=== PATIENT | male | born 1970 | race Caucasian/White ===

== ENCOUNTER 2021-10-22 09:41 | Inpatient (IN) ==
[2021-10-22] MEDS ORDERED: Ondansetron ODT 4 MG TAB.RAPDIS SL PRN (16:15)
[2021-10-22] MEDS ORDERED: Mag Hydrox/Al Hydrox/Simeth 30 ML UDC PO PRN (16:15)
[2021-10-22] MEDS ORDERED: Naloxone 0.4 MG/ML INJ IVP PRN (16:15)
[2021-10-22] MEDS ORDERED: Melatonin 3 MG TABLET PO PRN (16:15)
[2021-10-22] MEDS ORDERED: Perflutren Lipid Microsphere 1.3 ML in 0.9 % Sodium Chloride 8.7 ML IVP PRN (16:28)
[2021-10-22] MEDS ORDERED: Furosemide 40 MG/4 ML VIAL IVP ONE (16:42)
[2021-10-22 17:01] LABS: Hematocrit 24.1 % (37.5-50.1); Hemoglobin 7.7 g/dL (12.9-16.9)
[2021-10-22] MEDS: mycophenolate mofetiL 250 MG CAPSULE PO SCH (17:17)
[2021-10-22] MEDS ORDERED: Acetaminophen 325 MG TABLET PO ONE (20:23)
[2021-10-22] MEDS: NIFEdipine XL (24 HR) 30 MG TAB.ER.24 PO SCH (20:34)
[2021-10-23 03:08] LABS: Basophils % 0.4 %; Eosinophils # 0.2 K/mcL (0.0-0.6); Eosinophils % 3.2 %; Hematocrit 20.8 % (37.5-50.1); Hemoglobin 6.4 g/dL (12.9-16.9); Immature Granulocytes % 0.3 % (0-4); Lymphocytes # 1.1 K/mcL (0.6-4.6); Lymphocytes % 15.3 %; Mean Corpuscular HGB Conc 30.8 g/dL (31.6-35.5); Mean Corpuscular Hemoglobin 26.9 pg (28.0-33.3); Mean Corpuscular Volume 87.4 fL (83.0-100.0); Mean Platelet Volume 10.2 fL (9.4-12.4); Monocytes # 0.6 K/mcL (0.0-1.3); Monocytes % 8.1 %; Neutrophils # 5.2 K/mcL (1.6-8.9); Platelet Count 180 K/mcL (140-400); Red Blood Count 2.38 M/mcL (4.19-5.50); Red Cell Distribution Width 14.6 % (11.5-14.5); Segmented Neutrophils % 72.7 %; White Blood Count 7.2 K/mcL (4.3-11.1)
[2021-10-23 03:27] LABS: Albumin 3.2 g/dL (3.5-5.7); Albumin/Globulin Ratio 1.7 (1.1-2.2); Bilirubin,Total 0.4 mg/dL (0.3-1.0); Globulin 1.9 g/dL (2.4-3.5); Potassium 4.4 mEq/L (3.5-5.1); Total Protein 5.1 g/dL (6.4-8.9)
[2021-10-23] MEDS ORDERED: Dextrose Gel 15 GM/37.5 ML TUBE PO PRN ×2 (05:42)
[2021-10-23] MEDS ORDERED: D5% in Water 1,000 ML IVC PRN (05:42)
[2021-10-23] MEDS ORDERED: *HR* Dextrose 50 % in Water (Syg) 50 ML SYRINGE IVP PRN (05:42)
[2021-10-23] MEDS: mycophenolate mofetiL 250 MG CAPSULE PO SCH ×2 (07:59→20:04)
[2021-10-23] MEDS: NIFEdipine XL (24 HR) 30 MG TAB.ER.24 PO SCH ×2 (07:59→20:05)
[2021-10-23] MEDS ORDERED: predniSONE 5 MG TABLET PO SCH (09:00)
[2021-10-23] MEDS ORDERED: Iron Sucrose Complex 400 MG in 0.9 % Sodium Chloride 250 ML IVPB ONE (09:17)
[2021-10-23] MEDS ORDERED: 0.9 % Sodium Chloride 250 ML ONE (13:37)
[2021-10-23] MEDS: hydrALAZINE 10 MG TABLET PO SCH ×2 (14:32→20:03)
[2021-10-23] MEDS: Insulin Pump Cart,Cont Inf,Rf [Insulin Pump] 1 EACH SUBQ SCH (15:28)
[2021-10-23] MEDS: Furosemide 40 MG TABLET PO SCH (17:42)
[2021-10-23] MEDS ORDERED: (Tacrolimus [Prograf] 1 MG Capsule) PO SCH (18:00)
[2021-10-23] MEDS ORDERED: mycophenolate mofetiL 250 MG CAPSULE PO SCH (21:00)
[2021-10-24 01:02] LABS: Basophils % 0.4 %; Eosinophils # 0.2 K/mcL (0.0-0.6); Hemoglobin 7.9 g/dL (12.9-16.9); Immature Granulocytes % 0.4 % (0-4); Lymphocytes # 0.9 K/mcL (0.6-4.6); Lymphocytes % 7.7 %; Mean Corpuscular HGB Conc 31.6 g/dL (31.6-35.5); Mean Corpuscular Hemoglobin 27.4 pg (28.0-33.3); Mean Corpuscular Volume 86.8 fL (83.0-100.0); Monocytes # 0.8 K/mcL (0.0-1.3); Monocytes % 7.4 %; Neutrophils # 9.2 K/mcL (1.6-8.9); Platelet Count 183 K/mcL (140-400); Red Blood Count 2.88 M/mcL (4.19-5.50); Red Cell Distribution Width 14.2 % (11.5-14.5); Segmented Neutrophils % 82.1 %
[2021-10-24 01:03] LABS: White Blood Count 11.2 K/mcL (4.3-11.1)
[2021-10-24 01:22] LABS: Calcium 8.2 mg/dL (8.6-10.3); Magnesium 1.8 mg/dL (1.6-2.6); Potassium 4.7 mEq/L (3.5-5.1)
[2021-10-24 01:47] LABS: Vitamin B12 283 pg/mL (250-1100)
[2021-10-24] MEDS: mycophenolate mofetiL 250 MG CAPSULE PO SCH ×2 (09:38→20:21)
[2021-10-24] MEDS: NIFEdipine XL (24 HR) 30 MG TAB.ER.24 PO SCH ×2 (09:38→20:20)
[2021-10-24] MEDS: predniSONE 5 MG TABLET PO SCH (09:38)
[2021-10-24] MEDS: hydrALAZINE 10 MG TABLET PO SCH ×3 (09:39→20:20)
[2021-10-24] MEDS: Magnesium Oxide 400 MG TABLET PO SCH (09:39)
[2021-10-24] MEDS: (Tacrolimus [Prograf] 1 MG Capsule) PO SCH (09:39)
[2021-10-24] MEDS: Furosemide 40 MG TABLET PO SCH ×2 (09:42→16:21)
[2021-10-24 11:38] LABS: Vitamin D 25 Hydroxy 21 ng/mL (30-80)
[2021-10-24] MEDS: Insulin Pump Cart,Cont Inf,Rf [Insulin Pump] 1 EACH SUBQ SCH (14:54)
[2021-10-24] MEDS ORDERED: TACROLIMUS 1MG CAPSULE PO SCH (21:00)
[2021-10-25] MEDS ORDERED: Insulin LISPRO 300 UNITS/3 ML VIAL SUBQ SCH ×2 (01:15→07:30)
[2021-10-25 05:45] LABS: Basophils # 0.1 K/mcL (0.0-0.2); Basophils % 0.7 %; Eosinophils # 0.2 K/mcL (0.0-0.6); Eosinophils % 3.1 %; Hematocrit 24.6 % (37.5-50.1); Hemoglobin 7.7 g/dL (12.9-16.9); Immature Granulocytes % 0.6 % (0-4); Lymphocytes # 1.1 K/mcL (0.6-4.6); Lymphocytes % 15.3 %; Mean Corpuscular HGB Conc 31.3 g/dL (31.6-35.5); Mean Corpuscular Hemoglobin 27.3 pg (28.0-33.3); Mean Corpuscular Volume 87.2 fL (83.0-100.0); Monocytes # 0.7 K/mcL (0.0-1.3); Monocytes % 9.6 %; Neutrophils # 5.1 K/mcL (1.6-8.9); Platelet Count 181 K/mcL (140-400); Red Blood Count 2.82 M/mcL (4.19-5.50); Red Cell Distribution Width 14.3 % (11.5-14.5); Segmented Neutrophils % 70.7 %; White Blood Count 7.2 K/mcL (4.3-11.1)
[2021-10-25 05:56] LABS: Calcium 8.4 mg/dL (8.6-10.3); Magnesium 1.7 mg/dL (1.6-2.6); Potassium 4.8 mEq/L (3.5-5.1)
[2021-10-25] MEDS: NIFEdipine XL (24 HR) 30 MG TAB.ER.24 PO SCH (08:15)
[2021-10-25] MEDS: hydrALAZINE 10 MG TABLET PO SCH (08:15)
[2021-10-25] MEDS: predniSONE 5 MG TABLET PO SCH (08:15)
[2021-10-25] MEDS: mycophenolate mofetiL 250 MG CAPSULE PO SCH (08:15)
[2021-10-25] MEDS: Magnesium Oxide 400 MG TABLET PO SCH (08:16)
[2021-10-25] MEDS: (Tacrolimus [Prograf] 1 MG Capsule) PO SCH (08:16)
[2021-10-25] MEDS: Furosemide 40 MG TABLET PO SCH (08:16)
== END 2021-10-25 12:15 | disposition home or self-care (01) | DRG 194 ==
LOC: 2ANU → SUATTDRO 15:08
PROVIDERS: ADMIT Internal Medicine; ATTEND Family Medicine

== ENCOUNTER 2021-11-04 09:35 | Inpatient (IN) ==
[2021-11-04] MEDS ORDERED: Melatonin 3 MG TABLET PO PRN (12:35)
[2021-11-04] MEDS ORDERED: Ondansetron 4 MG/2 ML VIAL IVP PRN (12:35)
[2021-11-04] MEDS ORDERED: Naloxone 0.4 MG/ML INJ IVP PRN (12:35)
[2021-11-04] MEDS ORDERED: Acetaminophen 325 MG TABLET PO PRN (12:35)
[2021-11-04] MEDS ORDERED: *HR* Dextrose 50 % in Water (Syg) 50 ML SYRINGE IVP PRN (13:20)
[2021-11-04] MEDS ORDERED: D5% in Water 1,000 ML IVC PRN (13:20)
[2021-11-04] MEDS ORDERED: Dextrose Gel 15 GM/37.5 ML TUBE PO PRN ×2 (13:20)
[2021-11-04] MEDS ORDERED: hydrALAZINE 25 MG TABLET PO PRN (15:48)
[2021-11-04] MEDS: Furosemide 40 MG TABLET PO SCH (16:52)
[2021-11-04] MEDS: Insulin LISPRO 300 UNITS/3 ML VIAL SUBQ SCH ×2 (16:52→21:58)
[2021-11-04] MEDS: NIFEdipine XL (24 HR) 30 MG TAB.ER.24 PO SCH (16:52)
[2021-11-04] MEDS: (Tacrolimus [Prograf] 1 MG Capsule) PO SCH (17:16)
[2021-11-04] MEDS ORDERED: TACROLIMUS 0.5 MG PO SCH (18:00)
[2021-11-04] MEDS: mycophenolate mofetiL 250 MG CAPSULE PO SCH (21:57)
[2021-11-04] MEDS: Insulin DETEMIR 100 UNIT/ML X5UNITS SUBQ SCH (21:58)
[2021-11-05 01:46] LABS: Basophils % 0.4 %; Eosinophils # 0.2 K/mcL (0.0-0.6); Eosinophils % 2.1 %; Hematocrit 19.7 % (37.5-50.1); Hemoglobin 6.1 g/dL (12.9-16.9); Immature Granulocytes % 0.4 % (0-4); Lymphocytes # 0.9 K/mcL (0.6-4.6); Lymphocytes % 9.3 %; Mean Corpuscular Hemoglobin 26.9 pg (28.0-33.3); Mean Corpuscular Volume 86.8 fL (83.0-100.0); Mean Platelet Volume 10.4 fL (9.4-12.4); Monocytes # 0.6 K/mcL (0.0-1.3); Monocytes % 6.5 %; Neutrophils # 7.7 K/mcL (1.6-8.9); Platelet Count 148 K/mcL (140-400); Red Blood Count 2.27 M/mcL (4.19-5.50); Red Cell Distribution Width 14.1 % (11.5-14.5); Segmented Neutrophils % 81.3 %; White Blood Count 9.5 K/mcL (4.3-11.1)
[2021-11-05 02:11] LABS: Calcium 8.2 mg/dL (8.6-10.3); Magnesium 1.5 mg/dL (1.6-2.6); Phosphorous 5.9 mg/dL (2.7-4.5); Potassium 5.1 mEq/L (3.5-5.1)
[2021-11-05 03:22] LABS: Estimated Average Glucose 160 mg/dl; Hemoglobin A1C 7.2 %
[2021-11-05] MEDS ORDERED: TACROLIMUS 0.5 MG PO SCH (09:00)
[2021-11-05] MEDS ORDERED: 0.9 % Sodium Chloride 250 ML IVC PRN (09:05)
[2021-11-05] MEDS ORDERED: 0.9 % Sodium Chloride 2,000 ML PRIME SCH (09:15)
[2021-11-05 09:29] LABS: Hematocrit 20.6 % (37.5-50.1); Hemoglobin 6.6 g/dL (12.9-16.9)
[2021-11-05] MEDS ORDERED: Ethyl Chloride Spray Bottle (104 SPRAY/BOTTLE) TP PRN (09:29)
[2021-11-05] MEDS: Furosemide 40 MG TABLET PO SCH ×2 (09:33→17:21)
[2021-11-05] MEDS: (Tacrolimus [Prograf] 1 MG Capsule) PO SCH ×2 (09:33→17:22)
[2021-11-05] MEDS: mycophenolate mofetiL 250 MG CAPSULE PO SCH ×2 (09:33→22:04)
[2021-11-05] MEDS: NIFEdipine XL (24 HR) 30 MG TAB.ER.24 PO SCH (09:33)
[2021-11-05] MEDS: predniSONE 5 MG TABLET PO SCH (09:33)
[2021-11-05] MEDS: Magnesium Oxide 400 MG TABLET PO SCH (09:33)
[2021-11-05] MEDS: Insulin LISPRO 300 UNITS/3 ML VIAL SUBQ SCH ×4 (09:34→22:04)
[2021-11-05 12:22] LABS: Hepatitis B Surface Antibody < 3.10 mIU/mL
[2021-11-05 12:31] LABS: Hepatitis B Surface Antigen Nonreactive (Nonreactive)
[2021-11-05] MEDS: hydrALAZINE 25 MG TABLET PO SCH ×2 (17:21→23:22)
[2021-11-05] MEDS: Insulin DETEMIR 100 UNIT/ML X5UNITS SUBQ SCH (22:04)
[2021-11-06 06:12] LABS: Basophils % 0.4 %; Eosinophils # 0.3 K/mcL (0.0-0.6); Eosinophils % 4.2 %; Hematocrit 21.8 % (37.5-50.1); Immature Granulocytes % 0.3 % (0-4); Lymphocytes % 15.2 %; Mean Corpuscular HGB Conc 32.1 g/dL (31.6-35.5); Mean Corpuscular Hemoglobin 27.8 pg (28.0-33.3); Mean Corpuscular Volume 86.5 fL (83.0-100.0); Mean Platelet Volume 10.4 fL (9.4-12.4); Monocytes # 0.6 K/mcL (0.0-1.3); Monocytes % 8.4 %; Neutrophils # 4.8 K/mcL (1.6-8.9); Platelet Count 145 K/mcL (140-400); Red Blood Count 2.52 M/mcL (4.19-5.50); Red Cell Distribution Width 14.1 % (11.5-14.5); Segmented Neutrophils % 71.5 %; White Blood Count 6.7 K/mcL (4.3-11.1)
[2021-11-06 06:22] LABS: Calcium 8.5 mg/dL (8.6-10.3); Potassium 4.5 mEq/L (3.5-5.1)
[2021-11-06 06:24] LABS: Phosphorous 5.7 mg/dL (2.7-4.5)
[2021-11-06 06:25] LABS: INR 1.2; Prothrombin Time 13.6 Seconds (9.4-12.1)
[2021-11-06] MEDS ORDERED: 0.9 % Sodium Chloride 250 ML IVC PRN (07:17)
[2021-11-06] MEDS: Magnesium Oxide 400 MG TABLET PO SCH (07:44)
[2021-11-06] MEDS: mycophenolate mofetiL 250 MG CAPSULE PO SCH ×2 (07:44→20:36)
[2021-11-06] MEDS: predniSONE 5 MG TABLET PO SCH (07:44)
[2021-11-06] MEDS: hydrALAZINE 25 MG TABLET PO SCH ×3 (07:44→23:00)
[2021-11-06] MEDS: NIFEdipine XL (24 HR) 30 MG TAB.ER.24 PO SCH (07:44)
[2021-11-06] MEDS: Furosemide 40 MG TABLET PO SCH ×2 (07:44→16:01)
[2021-11-06] MEDS: (Tacrolimus [Prograf] 1 MG Capsule) PO SCH ×3 (07:44→17:05)
[2021-11-06] MEDS: Insulin LISPRO 300 UNITS/3 ML VIAL SUBQ SCH ×4 (07:45→20:35)
[2021-11-06] MEDS ORDERED: 0.9 % Sodium Chloride 500 ML ONE (10:11)
[2021-11-06] MEDS ORDERED: Iopamidol - 300 50 ML VIAL IVP ONE (10:18)
[2021-11-06] MEDS: Insulin DETEMIR 100 UNIT/ML X5UNITS SUBQ SCH (20:34)
[2021-11-07 07:21] LABS: Calcium 8.4 mg/dL (8.6-10.3); Potassium 4.6 mEq/L (3.5-5.1)
[2021-11-07] MEDS: Magnesium Oxide 400 MG TABLET PO SCH (07:40)
[2021-11-07] MEDS: hydrALAZINE 25 MG TABLET PO SCH ×3 (07:40→23:58)
[2021-11-07] MEDS: (Tacrolimus [Prograf] 1 MG Capsule) PO SCH ×2 (07:41→17:26)
[2021-11-07] MEDS: mycophenolate mofetiL 250 MG CAPSULE PO SCH ×2 (07:41→21:28)
[2021-11-07] MEDS: Furosemide 40 MG TABLET PO SCH ×2 (07:41→17:25)
[2021-11-07] MEDS: Insulin LISPRO 300 UNITS/3 ML VIAL SUBQ SCH ×4 (07:41→21:27)
[2021-11-07] MEDS: NIFEdipine XL (24 HR) 30 MG TAB.ER.24 PO SCH (07:41)
[2021-11-07] MEDS: predniSONE 5 MG TABLET PO SCH (07:41)
[2021-11-07 08:02] LABS: Hematocrit 23.4 % (37.5-50.1); Hemoglobin 7.4 g/dL (12.9-16.9); Mean Corpuscular HGB Conc 31.6 g/dL (31.6-35.5); Mean Corpuscular Hemoglobin 27.6 pg (28.0-33.3); Mean Corpuscular Volume 87.3 fL (83.0-100.0); Mean Platelet Volume 10.5 fL (9.4-12.4); Platelet Count 174 K/mcL (140-400); Red Blood Count 2.68 M/mcL (4.19-5.50); Red Cell Distribution Width 14.3 % (11.5-14.5); White Blood Count 5.3 K/mcL (4.3-11.1)
[2021-11-07] MEDS ORDERED: SODIUM CHLORIDE/NAHCO3/KCL/PEG 4,000 ML SOLN.RECON PO ONE (17:00)
[2021-11-07] MEDS: Insulin DETEMIR 100 UNIT/ML X5UNITS SUBQ SCH (21:27)
[2021-11-08 02:57] LABS: Basophils % 0.6 %; Eosinophils # 0.3 K/mcL (0.0-0.6); Eosinophils % 4.1 %; Hematocrit 23.6 % (37.5-50.1); Hemoglobin 7.3 g/dL (12.9-16.9); Immature Granulocytes % 0.7 % (0-4); Lymphocytes # 1.2 K/mcL (0.6-4.6); Lymphocytes % 17.7 %; Mean Corpuscular HGB Conc 30.9 g/dL (31.6-35.5); Mean Corpuscular Hemoglobin 27.1 pg (28.0-33.3); Mean Corpuscular Volume 87.7 fL (83.0-100.0); Mean Platelet Volume 10.4 fL (9.4-12.4); Monocytes # 0.7 K/mcL (0.0-1.3); Monocytes % 9.4 %; Neutrophils # 4.7 K/mcL (1.6-8.9); Platelet Count 187 K/mcL (140-400); Red Blood Count 2.69 M/mcL (4.19-5.50); Red Cell Distribution Width 14.1 % (11.5-14.5); Segmented Neutrophils % 67.5 %; White Blood Count 6.9 K/mcL (4.3-11.1)
[2021-11-08 03:16] LABS: Albumin 2.7 g/dL (3.5-5.7); Albumin/Globulin Ratio 1.4 (1.1-2.2); Bilirubin,Total 0.3 mg/dL (0.3-1.0); Calcium 8.2 mg/dL (8.6-10.3); Calcium 8.3 mg/dL (8.6-10.3); Globulin 1.9 g/dL (2.4-3.5); Potassium 4.6 mEq/L (3.5-5.1); Total Protein 4.6 g/dL (6.4-8.9)
[2021-11-08] MEDS ORDERED: 0.9 % Sodium Chloride 250 ML IVC PRN (07:09)
[2021-11-08] MEDS: mycophenolate mofetiL 250 MG CAPSULE PO SCH ×2 (08:28→21:46)
[2021-11-08] MEDS: NIFEdipine XL (24 HR) 30 MG TAB.ER.24 PO SCH (08:28)
[2021-11-08] MEDS: predniSONE 5 MG TABLET PO SCH (08:28)
[2021-11-08] MEDS: Furosemide 40 MG TABLET PO SCH ×2 (08:29→16:59)
[2021-11-08] MEDS: Insulin LISPRO 300 UNITS/3 ML VIAL SUBQ SCH ×4 (08:29→21:46)
[2021-11-08] MEDS: Magnesium Oxide 400 MG TABLET PO SCH (08:29)
[2021-11-08] MEDS: hydrALAZINE 25 MG TABLET PO SCH ×2 (08:30→16:59)
[2021-11-08] MEDS: (Tacrolimus [Prograf] 1 MG Capsule) PO SCH ×2 (08:30→16:59)
[2021-11-08] MEDS: Insulin DETEMIR 100 UNIT/ML X5UNITS SUBQ SCH (21:46)
[2021-11-09] MEDS: hydrALAZINE 25 MG TABLET PO SCH ×4 (00:55→22:19)
[2021-11-09 02:00] LABS: Basophils % 0.6 %; Eosinophils # 0.2 K/mcL (0.0-0.6); Eosinophils % 2.5 %; Hemoglobin 8.1 g/dL (12.9-16.9); Immature Granulocytes % 0.4 % (0-4); Lymphocytes # 1.3 K/mcL (0.6-4.6); Lymphocytes % 18.2 %; Mean Corpuscular HGB Conc 32.4 g/dL (31.6-35.5); Mean Corpuscular Hemoglobin 28.1 pg (28.0-33.3); Mean Corpuscular Volume 86.8 fL (83.0-100.0); Mean Platelet Volume 10.1 fL (9.4-12.4); Monocytes # 0.5 K/mcL (0.0-1.3); Monocytes % 7.9 %; Neutrophils # 4.8 K/mcL (1.6-8.9); Platelet Count 200 K/mcL (140-400); Red Blood Count 2.88 M/mcL (4.19-5.50); Red Cell Distribution Width 13.9 % (11.5-14.5); Segmented Neutrophils % 70.4 %; White Blood Count 6.9 K/mcL (4.3-11.1)
[2021-11-09 02:16] LABS: Albumin 2.9 g/dL (3.5-5.7); Albumin/Globulin Ratio 1.3 (1.1-2.2); Bilirubin,Total 0.3 mg/dL (0.3-1.0); Calcium 8.2 mg/dL (8.6-10.3); Globulin 2.2 g/dL (2.4-3.5); Potassium 4.6 mEq/L (3.5-5.1); Total Protein 5.1 g/dL (6.4-8.9)
[2021-11-09] MEDS: NIFEdipine XL (24 HR) 30 MG TAB.ER.24 PO SCH (09:00)
[2021-11-09] MEDS: mycophenolate mofetiL 250 MG CAPSULE PO SCH ×2 (09:00→20:26)
[2021-11-09] MEDS: predniSONE 5 MG TABLET PO SCH (09:00)
[2021-11-09] MEDS: (Tacrolimus [Prograf] 1 MG Capsule) PO SCH ×2 (09:00→16:33)
[2021-11-09] MEDS: Magnesium Oxide 400 MG TABLET PO SCH (09:00)
[2021-11-09] MEDS: Furosemide 40 MG TABLET PO SCH ×2 (09:00→16:31)
[2021-11-09] MEDS: Insulin LISPRO 300 UNITS/3 ML VIAL SUBQ SCH ×4 (09:01→20:27)
[2021-11-09] MEDS: Insulin DETEMIR 100 UNIT/ML X5UNITS SUBQ SCH (20:26)
[2021-11-10 02:01] LABS: Calcium 8.2 mg/dL (8.6-10.3); Potassium 4.7 mEq/L (3.5-5.1)
[2021-11-10] MEDS: predniSONE 5 MG TABLET PO SCH (07:57)
[2021-11-10] MEDS: hydrALAZINE 25 MG TABLET PO SCH ×2 (07:57→16:42)
[2021-11-10] MEDS: mycophenolate mofetiL 250 MG CAPSULE PO SCH ×2 (07:58→21:39)
[2021-11-10] MEDS: Furosemide 40 MG TABLET PO SCH ×2 (07:58→16:42)
[2021-11-10] MEDS: Insulin LISPRO 300 UNITS/3 ML VIAL SUBQ SCH ×4 (07:58→21:39)
[2021-11-10] MEDS: Magnesium Oxide 400 MG TABLET PO SCH (07:58)
[2021-11-10] MEDS: (Tacrolimus [Prograf] 1 MG Capsule) PO SCH ×2 (07:58→16:42)
[2021-11-10] MEDS: NIFEdipine XL (24 HR) 30 MG TAB.ER.24 PO SCH (07:58)
[2021-11-10] MEDS: Insulin DETEMIR 100 UNIT/ML X5UNITS SUBQ SCH (21:42)
[2021-11-11] MEDS: hydrALAZINE 25 MG TABLET PO SCH ×3 (00:06→17:03)
[2021-11-11] MEDS ORDERED: 0.9 % Sodium Chloride 250 ML IVC PRN (08:54)
[2021-11-11] MEDS ORDERED: Ethyl Chloride Spray Bottle (104 SPRAY/BOTTLE) TP PRN (08:54)
[2021-11-11] MEDS: Insulin LISPRO 300 UNITS/3 ML VIAL SUBQ SCH ×4 (09:04→21:01)
[2021-11-11] MEDS: Furosemide 40 MG TABLET PO SCH (09:22)
[2021-11-11] MEDS: predniSONE 5 MG TABLET PO SCH (09:22)
[2021-11-11] MEDS: NIFEdipine XL (24 HR) 30 MG TAB.ER.24 PO SCH (09:22)
[2021-11-11] MEDS: Magnesium Oxide 400 MG TABLET PO SCH (09:22)
[2021-11-11] MEDS: mycophenolate mofetiL 250 MG CAPSULE PO SCH ×2 (09:22→21:00)
[2021-11-11] MEDS: (Tacrolimus [Prograf] 1 MG Capsule) PO SCH ×2 (09:23→17:03)
[2021-11-11] MEDS: Insulin DETEMIR 100 UNIT/ML X5UNITS SUBQ SCH (21:00)
[2021-11-12] MEDS: hydrALAZINE 25 MG TABLET PO SCH ×3 (00:22→16:46)
[2021-11-12 01:54] LABS: Calcium 8.2 mg/dL (8.6-10.3); Potassium 4.3 mEq/L (3.5-5.1)
[2021-11-12] MEDS: Magnesium Oxide 400 MG TABLET PO SCH (08:20)
[2021-11-12] MEDS: NIFEdipine XL (24 HR) 30 MG TAB.ER.24 PO SCH (08:20)
[2021-11-12] MEDS: mycophenolate mofetiL 250 MG CAPSULE PO SCH ×2 (08:20→20:23)
[2021-11-12] MEDS: predniSONE 5 MG TABLET PO SCH (08:20)
[2021-11-12] MEDS: (Tacrolimus [Prograf] 1 MG Capsule) PO SCH ×2 (08:21→16:46)
[2021-11-12] MEDS: Insulin LISPRO 300 UNITS/3 ML VIAL SUBQ SCH ×4 (08:23→20:19)
[2021-11-12] MEDS: Insulin DETEMIR 100 UNIT/ML X5UNITS SUBQ SCH (20:19)
[2021-11-13] MEDS: hydrALAZINE 25 MG TABLET PO SCH ×3 (02:29→16:20)
[2021-11-13] MEDS: Insulin LISPRO 300 UNITS/3 ML VIAL SUBQ SCH ×4 (07:19→20:36)
[2021-11-13] MEDS ORDERED: 0.9 % Sodium Chloride 250 ML IVC PRN (07:21)
[2021-11-13] MEDS: NIFEdipine XL (24 HR) 30 MG TAB.ER.24 PO SCH (08:43)
[2021-11-13] MEDS: mycophenolate mofetiL 250 MG CAPSULE PO SCH ×2 (08:43→20:35)
[2021-11-13] MEDS: predniSONE 5 MG TABLET PO SCH (08:43)
[2021-11-13] MEDS: Magnesium Oxide 400 MG TABLET PO SCH (08:43)
[2021-11-13] MEDS: (Tacrolimus [Prograf] 1 MG Capsule) PO SCH ×2 (08:44→18:02)
[2021-11-13] MEDS: Insulin DETEMIR 100 UNIT/ML X5UNITS SUBQ SCH (20:36)
[2021-11-14 03:19] LABS: Hematocrit 26.8 % (37.5-50.1); Hemoglobin 8.6 g/dL (12.9-16.9); Mean Corpuscular HGB Conc 32.1 g/dL (31.6-35.5); Mean Corpuscular Hemoglobin 27.8 pg (28.0-33.3); Mean Corpuscular Volume 86.7 fL (83.0-100.0); Mean Platelet Volume 9.9 fL (9.4-12.4); Platelet Count 206 K/mcL (140-400); Red Blood Count 3.09 M/mcL (4.19-5.50); Red Cell Distribution Width 14.8 % (11.5-14.5); White Blood Count 5.9 K/mcL (4.3-11.1)
[2021-11-14 03:43] LABS: Calcium 8.2 mg/dL (8.6-10.3); Potassium 4.2 mEq/L (3.5-5.1)
[2021-11-14] MEDS: hydrALAZINE 25 MG TABLET PO SCH ×4 (05:34→22:33)
[2021-11-14] MEDS: Insulin LISPRO 300 UNITS/3 ML VIAL SUBQ SCH ×4 (07:40→20:28)
[2021-11-14] MEDS: Magnesium Oxide 400 MG TABLET PO SCH (08:28)
[2021-11-14] MEDS: NIFEdipine XL (24 HR) 30 MG TAB.ER.24 PO SCH (08:28)
[2021-11-14] MEDS: mycophenolate mofetiL 250 MG CAPSULE PO SCH ×2 (08:28→20:27)
[2021-11-14] MEDS: predniSONE 5 MG TABLET PO SCH (08:28)
[2021-11-14] MEDS: (Tacrolimus [Prograf] 1 MG Capsule) PO SCH ×2 (08:28→16:41)
[2021-11-14 16:19] VITALS: O2SAT 98
[2021-11-14] MEDS: Insulin DETEMIR 100 UNIT/ML X5UNITS SUBQ SCH (20:28)
[2021-11-15 07:27] VITALS: PULSE 82
[2021-11-15] MEDS ORDERED: 0.9 % Sodium Chloride 250 ML IVC PRN (07:33)
[2021-11-15] MEDS: Insulin LISPRO 300 UNITS/3 ML VIAL SUBQ SCH ×2 (07:50→11:56)
[2021-11-15] MEDS: NIFEdipine XL (24 HR) 30 MG TAB.ER.24 PO SCH (07:51)
[2021-11-15] MEDS: hydrALAZINE 25 MG TABLET PO SCH (07:51)
[2021-11-15] MEDS: predniSONE 5 MG TABLET PO SCH (07:51)
[2021-11-15] MEDS: Magnesium Oxide 400 MG TABLET PO SCH (07:51)
[2021-11-15] MEDS: mycophenolate mofetiL 250 MG CAPSULE PO SCH (07:51)
[2021-11-15] MEDS: (Tacrolimus [Prograf] 1 MG Capsule) PO SCH (07:52)
[2021-11-15 11:35] LABS: Basophils % 0.4 %; Eosinophils # 0.1 K/mcL (0.0-0.6); Eosinophils % 0.7 %; Hematocrit 29.9 % (37.5-50.1); Hemoglobin 9.7 g/dL (12.9-16.9); Immature Granulocytes % 0.5 % (0-4); Lymphocytes # 0.6 K/mcL (0.6-4.6); Lymphocytes % 7.7 %; Mean Corpuscular HGB Conc 32.4 g/dL (31.6-35.5); Mean Corpuscular Hemoglobin 27.7 pg (28.0-33.3); Mean Corpuscular Volume 85.4 fL (83.0-100.0); Mean Platelet Volume 9.7 fL (9.4-12.4); Monocytes # 0.6 K/mcL (0.0-1.3); Monocytes % 7.7 %; Neutrophils # 6.8 K/mcL (1.6-8.9); Platelet Count 219 K/mcL (140-400); Red Cell Distribution Width 14.7 % (11.5-14.5); White Blood Count 8.2 K/mcL (4.3-11.1)
[2021-11-15 11:54] LABS: Calcium 8.6 mg/dL (8.6-10.3); Potassium 3.6 mEq/L (3.5-5.1)
[2021-11-15 14:27] VITALS: BP 158/57; TEMP 97.8
== END 2021-11-15 15:03 | disposition home or self-care (01) | DRG 470 ==
LOC: 2ANU → SUATTDRO 11-08 17:58
PROVIDERS: ADMIT Hospitalist; ATTEND Family Medicine